=== PATIENT | male | born 1965 | race Two or more races ===

== ENCOUNTER 2022-09-30 18:26 | Emergency (ER) | payer BC, OTHER ==
[~2022-09-30] VITALS: Ht 175.3 cm; Wt 88.0 kg
[2022-09-30 19:19] LABS: Basophils # (auto) 0.1 10 ^3/uL (0-0.2); Basophils % (auto) 0.7 % (0.0-2.0); Eosinophils # (auto) 0.2 10 ^3/uL (0-0.8); Eosinophils % (auto) 2.4 % (0.0-7.0); Hematocrit 43.5 % (41.0-53.0); Hemoglobin 14.9 g/dL (13.5-17.5); Lymphocytes # (auto) 1.7 10 ^3/uL (0.4-5.4); Lymphocytes % (auto) 22.4 % (10.0-50.0); Mean Corpuscular Hemoglobin 28.1 pg (28.0-32.0); Mean Corpuscular Hgb Conc. 34.2 g/dL (32.0-36.0); Mean Corpuscular Volume 82.2 fL (80.0-100.0); Monocytes # (auto) 0.6 10 ^3/uL (0-1.3); Monocytes % (auto) 8.6 % (0.0-12.0); Neutrophils # (auto) 4.9 10 ^3/uL (1.6-8.6); Neutrophils % (auto) 65.9 % (37.0-80.0); Nucleated Red Blood Cells % 0.1 %; Red Blood Cells 5.29 10^6/uL (4.5-5.90); Red Cell Distribution Width 13.1 % (11.8-14.3); White Blood Cell 7.5 10^3/uL (4.4-10.8)
[2022-09-30 19:22] LABS: Urine Bacteria NONE SEEN /hpf (None Seen); Urine Blood Negative /uL (Negative); Urine Hyaline Cast FEW /lpf (0 - 2); Urine Mucus FEW (None Seen); Urine Specific Gravity 1.026 (1.001-1.035); Urine WBC 1 /hpf (0 - 3)
[2022-09-30 19:34] LABS: Albumin 3.8 g/dL (3.4-5.0); BUN/Creatinine Ratio 12.7; Calcium 8.8 mg/dL (8.5-10.1)
[2022-09-30 19:37] LABS: Bilirubin, Total 0.7 mg/dL (0.2-1.0)
[2022-10-01] MEDS ORDERED: METF500S PO (02:05)
[2022-10-01 04:15] VITALS: BP 167/87
== END 2022-10-01 05:20 | disposition home or self-care (01) ==
LOC: ER 18:26
DX: E11.65 Type 2 diabetes mellitus with hyperglycemia (principal)
CPT/HCPCS: 36415; 80053; 81001; 83036; 85025

== ENCOUNTER 2024-04-14 15:03 | Emergency (ER) | payer BC, OTHER ==
[~2024-04-14] VITALS: Ht 175.3 cm; Wt 90.3 kg
[~2024-04-14 15:03] MED LIST: METF500S3 PO; [UNRECOGNIZED DRUG - CODE] PO
[2024-04-14 16:28] VITALS: BP 169/86; PULSE 73; RESP 17; TEMP 98.8; O2SAT 98
[2024-04-14] MEDS ORDERED: CYCL-837 PO (17:23)
[2024-04-14] MEDS ORDERED: IBUP-1454 PO (17:23)
[2024-04-14] MEDS ORDERED: LIDO5DIS21 TOP (17:23)
== END 2024-04-14 17:54 | disposition home or self-care (01) ==
LOC: ER 16:42
DX: M54.2 Cervicalgia (principal); Z79.899 Other long term (current) drug therapy; Z79.1 Long term (current) use of non-steroidal anti-inflammatories (NSAID); V89.2XXA Person injured in unspecified motor-vehicle accident, traffic, initial encounter; Y93.89 Activity, other specified; Y92.89 Other specified places as the place of occurrence of the external cause; Y99.8 Other external cause status
CPT/HCPCS: 72040